=== PATIENT | female | born 1965 | race Two or more races ===

== ENCOUNTER 2022-02-18 10:24 | Inpatient (IN) | payer OTHER ==
[~2022-02-18] VITALS: Ht 167.6 cm; Wt 81.6 kg
[~2022-02-18 10:24] MED LIST: COZAAR100 MG PO; HYDRODIURIL12.5 MG PO; TOPROL XL100 M1 PO
[2022-02-24] MEDS ORDERED: SUCRALFATE1 GM (08:01)
[2022-02-24] MEDS ORDERED: MONTELUKAST SOD10 MG (08:02)
[2022-02-24] MEDS ORDERED: OMEPRAZOLE20 MG (08:02)
== END 2022-02-26 14:39 | disposition home or self-care (01) | DRG 331 ==
LOC: O/R 02-24 05:36 → SURH 02-24 10:38
PROVIDERS: ADMIT Colon & Rectal Surgery; ATTEND Colon & Rectal Surgery
PROC: 0DJD8ZZ Inspection of Lower Intestinal Tract, Via Natural or Artificial Opening Endoscopic (ICD-10-PCS; 2022-02-24)
PROC: 0DTE4ZZ Resection of Large Intestine, Percutaneous Endoscopic Approach (ICD-10-PCS; principal; 2022-02-24 13:45)
DX: K57.32 Diverticulitis of large intestine without perforation or abscess without bleeding (principal); Z20.822 Contact with and (suspected) exposure to COVID-19

== ENCOUNTER 2024-03-20 09:13 | Inpatient (IN) | payer OTHER ==
[~2024-03-20] VITALS: Ht 167.6 cm; Wt 90.7 kg
[~2024-03-20 09:13] MED LIST changes: +MONTELUKAST SOD10 MG; +OMEPRAZOLE20 MG; +SUCRALFATE1 GM
[2024-03-20 10:16] VITALS: BP 143/78
[2024-03-20 10:19] VITALS: BP 122/78
[2024-03-27] MEDS ORDERED: METRONIDAZOLE/SODIUM CHLORIDE 500 MG/100 ML PIGGYBACK IV ONE (11:45)
[2024-03-27] MEDS ORDERED: CEFTRIAXONE SODIUM 2,000 MG VIAL ONE (11:45)
[2024-03-27] MEDS ORDERED: OxyCODONE HCL 5 MG TABLET (ROXICODONE) PO PRN (14:30)
[2024-03-27] MEDS ORDERED: ONDANSETRON HCL 2 MG/ML VIAL IV PRN (14:30)
[2024-03-27] MEDS ORDERED: MORPHINE SULFATE 4 MG/ML CARTRIDGE IV PRN (14:30)
[2024-03-27] MEDS ORDERED: RINGERS SOLUTION,LACTATED 1,000 ML IV SCH (14:30)
[2024-03-27] MEDS ORDERED: DEXTROSE 50 % IN WATER 0.5 G/ML DISP.SYRIN IV PRN (14:30)
[2024-03-27] MEDS ORDERED: MEPERIDINE HCL/PF 50 MG,MEPERIDINE HCL/PF 25 MG IM PRN (15:30)
[2024-03-27] MEDS ORDERED: hydrALAZINE HCL 20 MG VIAL IV PRN (15:45)
[2024-03-27] MEDS ORDERED: ONDANSETRON HCL 2 MG/ML VIAL ONE (16:06)
[2024-03-27] MEDS ORDERED: FAMOTIDINE/PF 20 MG/2 ML VIAL ONE (16:54)
[2024-03-27] MEDS ORDERED: CELECOXIB 200 MG CAPSULE PO SCH (17:00)
[2024-03-27] MEDS ORDERED: GABAPENTIN 300 MG CAPSULE PO SCH (17:00)
[2024-03-27] MEDS ORDERED: POLYETHYLENE GLYCOL 3350 17 GM BLIST.PACK PO SCH (17:00)
[2024-03-27] MEDS ORDERED: METOCLOPRAMIDE HCL 5 MG/ML VIAL IV SCH (17:00)
[2024-03-27] MEDS ORDERED: SIMETHICONE 125 MG CAPSULE PO SCH (17:00)
[2024-03-27] MEDS ORDERED: HYOSCYAMINE SULFATE 0.125 MG TAB.SUBL SL SCH (17:00)
[2024-03-27 17:10] LABS: HEMATOCRIT 41.1 % (36.0-45.00); HEMOGLOBIN 13.7 g/dL (12.0-15.00); MEAN CELL VOLUME 84.3 fL (80.00-100.00); MEAN CORPUSCULAR HEMOGLOBIN 28.2 pg (27.00-32.0); MEAN CORPUSCULAR HGB CONC 33.4 g/dl (32.0-36.0); PLATELET COUNT 216 K/uL (150-450); RED BLOOD COUNT 4.88 M/uL (4.00-6.00); RED CELL DISTRIBUTION WIDTH 14.9 % (11.5-14.5)
[2024-03-27] MEDS ORDERED: hydrALAZINE HCL 20 MG VIAL ONE (17:39)
[2024-03-27] MEDS ORDERED: ACETAMINOPHEN 500 MG GEL..CAP PO SCH (20:00)
[2024-03-27] MEDS ORDERED: FAMOTIDINE/PF 20 MG/2 ML VIAL IV PUSH SCH (21:00)
[2024-03-27 23:44] VITALS: BP 143/74; O2SAT 99
[2024-03-28 06:37] LABS: HEMATOCRIT 37.4 % (36.0-45.00); HEMOGLOBIN 12.7 g/dL (12.0-15.00); MEAN CORPUSCULAR HEMOGLOBIN 28.5 pg (27.00-32.0); MEAN CORPUSCULAR HGB CONC 33.9 g/dl (32.0-36.0); PLATELET COUNT 205 K/uL (150-450); RED BLOOD COUNT 4.45 M/uL (4.00-6.00); RED CELL DISTRIBUTION WIDTH 14.6 % (11.5-14.5)
[2024-03-28 07:00] VITALS: BP 125/71; O2SAT 95
[2024-03-28 07:24] LABS: ALBUMIN 2.9 gm/dL (3.4-5.0); CALCIUM 8.3 mg/dL (8.5-10.1); CREATININE SERUM 0.68 mg/dL (0.55-1.02); GFR 89.18; MAGNESIUM 1.9 mg/dL (1.8-2.4); PHOSPHOROUS 3.3 mg/dL (2.5-4.9)
[2024-03-28 07:49] LABS: POTASSIUM 2.93 mEq/L (3.5-5.1)
[2024-03-28] MEDS ORDERED: LACTULOSE 20 G/30 ML BLIST.PACK PO SCH (09:00)
[2024-03-28] MEDS ORDERED: LOSARTAN POTASSIUM 100 MG TABLET PO SCH (09:00)
[2024-03-28] MEDS ORDERED: HYDROCHLOROTHIAZIDE 12.5 MG CAPSULE PO SCH (09:00)
[2024-03-28] MEDS ORDERED: METOPROLOL SUCCINATE 100 MG TAB.SR.24H PO SCH (09:00)
[2024-03-28] MEDS ORDERED: LACTOBACILLUS ACIDOPHILUS 1 CAP CAP PO SCH (09:00)
[2024-03-28 16:00] VITALS: BP 111/57; O2SAT 99
[2024-03-28] MEDS ORDERED: ENOXAPARIN SODIUM 40 MG/0.4 ML SYRINGE SUBCUTANEO SCH (17:00)
[2024-03-29] VITALS: BP 100/60; O2SAT 98
[2024-03-29 08:00] VITALS: BP 117/71; O2SAT 98
[2024-03-29] MEDS ORDERED: ENOXAPARIN SODIUM 40 MG/0.4 ML SYRINGE SUBCUTANEO SCH (09:00)
[2024-03-29 16:00] VITALS: BP 132/65; O2SAT 97
[2024-03-30 01:32] VITALS: BP 164/81; O2SAT 95
[2024-03-30 08:49] VITALS: BP 137/81; O2SAT 95
[2024-03-30] MEDS ORDERED: PANTOPRAZOLE SODIUM 40 MG/VIAL VIAL IV SCH (09:00)
[2024-03-30 16:44] VITALS: BP 113/66; O2SAT 96
[2024-03-31 00:49] VITALS: BP 116/65; O2SAT 97
[2024-03-31 08:47] LABS: CALCIUM 8.4 mg/dL (8.5-10.1); CREATININE SERUM 0.7 mg/dL (0.55-1.02); GFR 86.25; POTASSIUM 3.26 mEq/L (3.5-5.1)
[2024-03-31] MEDS ORDERED: POTASSIUM CHLORIDE 8 MEQ TABLET PO SCH (09:00)
[2024-03-31 09:06] VITALS: BP 121/65; O2SAT 99
[2024-03-31 10:37] LABS: HEMOGLOBIN 13.2 g/dL (12.0-15.00); MEAN CELL VOLUME 84.4 fL (80.00-100.00); MEAN CORPUSCULAR HEMOGLOBIN 28.6 pg (27.00-32.0); MEAN CORPUSCULAR HGB CONC 33.9 g/dl (32.0-36.0); PLATELET COUNT 281 K/uL (150-450); RED BLOOD COUNT 4.63 M/uL (4.00-6.00); RED CELL DISTRIBUTION WIDTH 14.8 % (11.5-14.5)
[2024-03-31] MEDS ORDERED: MORPHINE SULFATE 4 MG/ML CARTRIDGE IV PRN (14:15)
[2024-03-31] MEDS ORDERED: SUCRALFATE 1 G TABLET PO NR (14:30)
[2024-03-31] MEDS ORDERED: DICYCLOMINE HCL 10 MG/5 ML ML PO ONE (15:45)
[2024-03-31 16:44] VITALS: BP 140/63; O2SAT 97
[2024-03-31 18:37] LABS: AMYLASE 31 U/L (25-115); LIPASE 25 U/L (13-75)
[2024-04-01 00:05] VITALS: BP 143/68; O2SAT 98
[2024-04-01 08:00] VITALS: BP 138/77; O2SAT 96
[2024-04-01] MEDS ORDERED: SUCRALFATE 1 G TABLET PO SCH (09:00)
[2024-04-01] MEDS ORDERED: FAMOTIDINE/PF 20 MG/2 ML VIAL IV NR (11:00)
[2024-04-01] MEDS ORDERED: DICYCLOMINE HCL 20 MG TABLET PO SCH (13:00)
[2024-04-01 16:27] VITALS: BP 112/55; O2SAT 99
[2024-04-01] MEDS ORDERED: FAMOTIDINE/PF 20 MG in 0.9 % SODIUM CHLORIDE 8 ML IV PUSH SCH (21:00)
[2024-04-02 00:05] VITALS: BP 138/78; O2SAT 99
[2024-04-02 08:27] VITALS: BP 190/73; O2SAT 98
[2024-04-02 16:00] VITALS: BP 160/75; O2SAT 98
[2024-04-03] VITALS: BP 132/74; O2SAT 99
[2024-04-03 08:00] VITALS: BP 129/70; O2SAT 97
== END 2024-04-03 13:13 | disposition home or self-care (01) | DRG 330 ==
LOC: SURG 03-27 05:45 → O/R 03-27 05:45 → SURG 03-27 10:30 → EDBD 03-27 10:30 → SURG 03-27 11:00
PROVIDERS: Internal Medicine; Surgery; ADMIT Colon & Rectal Surgery; ATTEND Colon & Rectal Surgery
PROC: 07BB4ZX Excision of Mesenteric Lymphatic, Percutaneous Endoscopic Approach, Diagnostic (ICD-10-PCS; 2024-03-27)
PROC: 0DTF4ZZ Resection of Right Large Intestine, Percutaneous Endoscopic Approach (ICD-10-PCS; principal; 2024-03-27 11:00)
DX: K57.32 Diverticulitis of large intestine without perforation or abscess without bleeding (principal); K92.1 Melena; K58.0 Irritable bowel syndrome with diarrhea; I10 Essential (primary) hypertension; D49.0 Neoplasm of unspecified behavior of digestive system